=== PATIENT | female | born 1975 | race Asian ===

== ENCOUNTER 2023-11-20 09:06 | Emergency (ER) | payer OTHER, SELFPAY ==
[2023-11-20 09:17] VITALS: BP 120/88
--- NOTE | 2023-11-20 09:49 | ED.GENMED ---
History of Present Illness
General
Chief Complaint: Abdominal Pain
Source: patient
Exam Limitations: none
Time Seen by Provider: 11/20/23 09:21
Nursing documentation reviewed up to this point in time: agreed with
Travel History
Have you had any contact with someone who has COVID-19?: No
Do you have any symptoms of coronavirus? Fever > 100 degrees, chills, cough, shortness of breath, sore throat, loss of taste or smell, muscle aches, or headache?: No
History of Present Illness
History of Present Illness:
48 y/o F with h/o constipation
no meds
just benefiber
here with multiple complaints x 5 days
onset of runny nose, chills, dry cough and upper abd pain that she thought was GERD 5 days ago. she says she has this sharp pain that gets worse with eating
she started taking tums, peptobismol which didn't really help so she hasn't really been eating much
then yesterday started with greenish loose stool appro 6 episodes total with worsening abd pain
at 3 am after returning from , she had a pain when she took a deep breath that was felt in her back
it since has resolved
no chest pain or sob now
her son had the flu 2 weeks ago
she has never had endoscopy/colonoscopy
she has some stress, denies smoking and alcohol
no h/o PUD
no black stool
Past History
Past History
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
ED Past Surgical History: Gynecological
Social History
Tobacco: Non-smoker
Alcohol: None
Drug: None
Personal:
Living: with family
Employment: Employed
Review of Systems
Review of Systems
Allergies reviewed?: Yes
All Other Systems: Not applicable
Phy Exam
Physical Exam
Physical Exam:
GENERAL: Alert , in no apparent distress
EYE: pupils equal and reactive
NECK: Supple
ENT: o/p clr, mmm.
CARDIAC: Regular rate and rhythm .
LUNGS: Clear breath sounds bilaterally, no acute respiratory distress, no wheezes/rales/rhonchi
ABDOMEN: Soft, mild to moderate tenderness epigastric region, negative Odell sign, no lower abdominal tenderness no r/g, no cvat, normal bowel sounds
NEUROLOGICAL: Alert and oriented, no focal neuro deficits
SKIN: Warm and dry, skin intact.
MUSCULOSKELETAL: No edema, well perfused.
PSYCH: Normal and appropriate interaction.
Course
Orders/Labs/Results
Orders:
Orders
11/20/23 09:21
EKG [Electrocardiogram (*1)] Urgent
Reason for Study: Abdominal Pain
EKG- Treatment ONCE
11/20/23 09:33
0.9% Sodium Chloride 1000 ml [Nss] 1,000 ml IV BOLUS
Famotidine [Pepcid] 20 mg IV NOW STA
11/20/23 09:34
CT Abd/Pel (IV only)-DH only Urgent
Comment:
Reason For Exam: upper abd pain and diarrhea
Test Result ONCE
CR Chest - 2 Views Urgent
Comment:
Reason For Exam: cough, pain in back
11/20/23 10:02
COVID-19 Antigen Urgent
Source: Nasal Swab
Complete Blood Count/With Diff Urgent
Comprehensive Metabolic Panel Urgent
HCG, Serum Qualitative Screen Urgent
Lipase Urgent
Influenza A+B Rapid Molecular Urgent
KAREN Source: Nasal Swab
Specimen Description:
11/20/23 11:19
Stool Culture Urgent
KAREN Source: Feces/Stool
Specimen Description:
Date Specimen was Collected: 11/20/23
Time Specimen was Collected: 11:07
Abnormal Lab Results
11/20/23
10:02
MCH 32.3 H pg
(27.0-31.0)
RDW 11.2 L %
(11.5-14.5)
11/20/23 10:02
11/20/23 10:02
Vital Signs
Initial and Last Documented VS:
Initial Vital Signs
Temp Pulse Resp BP Pulse Ox
97.8 F 81 16 120/88 100
11/20/23 09:17 11/20/23 09:17 11/20/23 09:17 11/20/23 09:17 11/20/23 09:17
Last Documented Vital Signs
Temp Pulse Resp BP Pulse Ox
97.8 F 64 16 120/78 98
11/20/23 09:17 11/20/23 12:31 11/20/23 12:31 11/20/23 12:28 11/20/23 12:31
MDM/Problems Addressed
Differential Diagnosis Includes:
gastritis, colitis, cholelithiasis,
MDM/Problems Addressed:
48 y/o F with epigsatric pain off and on, worse with eating, as well as mild cold symptoms and diarrhea
no h/o gerd or PUD
son had flu 2 weeks ago
pt tested pos for influenza
she is getting intermtitent epigastric pains before she has to have BM
ekg nonischemic.
labs unremarkable
ct shows possiblity of gastritis and some incidentall findings, copy of report given
bentyl and pepcid rx
return precations
*Critical Care Note
Total Time (30-74mins, 75-104mins- exclusive of procedures): Not Applicable
ED Attending Note
-
Portions of this chart may have been created with voice recognition software.� Occasional wrong word or��sound alike� substitutions may have occurred due to the inherent limitations of voice recognition software.
Discharge Plan
Departure
Patient Disposition: Home (Routine Discharge)
Date of Disposition: 11/20/23
Time of Disposition: 12:17
Patient with high blood pressure during this ER visit?: No
Condition: Fair
Covid-19: Not Applicable
Discharge Problem:
Influenza A, Gastritis
Instructions: Flu, Adult (DC), Gastritis (DC)
Prescriptions:
New
famotidine [Pepcid] 20 mg tablet
20 mg PO BID Qty: 30 0RF
dicyclomine 20 mg tablet
20 mg PO QID PRN (Reason: abdominal pain) Qty: 20 0RF
Referrals:
Karo Herrera MD [Family Provider] - Follow up in 2-3 days
Stand Alone Forms: Return to Work
Activity Restrictions/Additional Instructions:
YOU HAVE THE FLU
STAY HOME WHILE YOU AREN'T FEELING WELL
TRY PEPCID TWICE A DAY FOR YOUR STOMACH PAIN FOR 1 WEEK TO SEE IF THIS HELPS - YOUR CAT SCAN SHOWED THAT YOU COULD HAVE GASTRITIS. THIS IS INFLAMMATION IN THE STOMACH LINING. IT COULD BE FROM HAVING THE FLU BUT ALSO IF YOU HAVE REFLUX. AVOID
ACIDIC FOODS, AVOID SPICY FOODS.
FOR YOUR DIARRHEA, YOU CAN STAY HYDRATED, EAT A BLAND DIET (BANANAS RICE APPLESAUCE TOAST)
IF YOU FEEL LIKE IT IS TOO MUHC TO HANDLE YOU CAN TRY A DOSE OR 2 OF OVER THE COUNTER IMODIUM.
YOUR SYPMTOMS SHOULD IMPROVE
RETURN FOR ANY SEVERE CONCERNS, DEHYDRTION, BLOODY DIARRHEA, SEVERE PAIN, BLACK STOOL ETC
YOU CAN FOLLOW P WITH YOUR GI DOCTOR REGARDING YOUR STOMACH PAIN IF THAT CONTINUES
YOU MAY NEED AN ENDOSCOPY
Interventions
Interventions:
*Risk Screen - Suicide Last Done: 11/20/23 09:17
*General Assessment Last Done: 11/20/23 09:17
*Neglect/Abuse Screening Last Done: 11/20/23 09:17
ED- Fall Risk Assessment Last Done: 11/20/23 13:03
*ED COVID-19 Vaccine History Last Done: 11/20/23 13:03
*Nursing Disposition Last Done: 11/20/23 13:03
PC-Hrseql-Seavvliwiz Assessment Last Done: 11/20/23 10:28
Discharge Date and Time
Discharge Date/Time: 11/20/23 12:50
[2023-11-20 09:51] VITALS: BMI 29.3
[2023-11-20] MEDS: NSS 1000 IV (10:01)
[2023-11-20] MEDS: PEPCID 20 MG IV (10:02)
[2023-11-20 10:10] VITALS: BP 117/79
[2023-11-20 10:13] LABS: % Basophils 0.5 % (0-2); % Eosinophils 0.3 % (0-6); % Immature Granulocytes 0.3 % (0-0.5); % Lymphocytes 25.9 % (20.5-51.1); % Monocytes 7.1 % (1.7-9.3); % Neutrophils 65.9 % (42.2-75.2); Absolute Lymphocytes 1.6 10^3/uL (1.2-3.4); Absolute Monocytes 0.4 10^3/uL (0.1-0.6); Hematocrit 39.5 % (37.0-47.0); Hemoglobin 14.1 g/dL (12.0-16.0); Mean Corp Hgb Conc. 35.7 g/dL (33.0-37.0); Mean Corpuscular Hgb 32.3 pg (27.0-31.0); Mean Corpuscular Volume 90.6 fL (81.0-99.0); Mean Platelet Volume 9.1 fL (7.4-10.4); Nucleated Red Blood Cells % 0 %; Platelet Count 260 10^3/uL (130-400); Red Blood Cell Count 4.36 10^6/uL (4.20-5.40); Red Cell Dist. Width 11.2 % (11.5-14.5)
[2023-11-20 10:24] LABS: HCG, Serum Qualitative Screen Negative
[2023-11-20 10:29] LABS: ALT (SGPT) 27 U/L (0-35); AST (SGOT) 32 U/L (14-36); Albumin 3.9 g/dl (3.5-5.0); Alkaline Phosphatase 66 U/L (38-126); Blood Urea Nitrogen 7 mg/dl (7-17); Calcium 8.7 mg/dl (8.4-10.2); Carbon Dioxide 29 mmol/L (22-30); Chloride 99 mmol/L (98-107); Estimated Creatinine Clearance 101 ml/min; Glucose 99 mg/dl (70-99); Potassium 3.8 mmol/L (3.5-5.1); Sodium 137 mmol/L (135-145); Total Bilirubin 0.4 mg/dl (0.2-1.3); Total Protein 6.5 g/dl (6.3-8.2); eGFR > 60.00
[2023-11-20 10:34] LABS: COVID-19 Antigen Negative (Negative)
[2023-11-20 11:17] VITALS: BP 110/78
[2023-11-20 11:43] LABS: Lipase 120 U/L (23-300)
[2023-11-20 12:28] VITALS: BP 120/78
== END 2023-11-20 12:50 | disposition home or self-care (01) ==
LOC: EMR 09:06
PROVIDERS: Physician Assistant; EMERGENCY PHYSICIAN Emergency Medicine; FAMILY PHYSICIAN Internal Medicine
DX: J09.X2 Influenza due to identified novel influenza A virus with other respiratory manifestations (principal); K29.70 Gastritis, unspecified, without bleeding; Z11.52 Encounter for screening for COVID-19
CPT/HCPCS: 99285; 96374; 96361; 71046; 74177; 80053; 83690; 84703; 85025; 87045; 87046; 87427; 87502; 87811; 93005; Q9967